=== PATIENT | female | born 1970 | race Caucasian/White ===

== ENCOUNTER 2017-06-16 10:04 | Day surgery (SDC) | payer BC ==
[~2017-06-16 10:04] MED LIST: Lactated Ringers 1,000 ML IV SCH; Midazolam 1 MG/ML 2 ML SDV ONE; Propofol 200 MG/20 ML SDV ONE; Sodium Chloride 0.9% 5 ML Syringe FLUSH PRN
[2017-06-16] MEDS ORDERED: Ketorolac 30 MG/ML SDV ONE (11:04)
[2017-06-16] MEDS ORDERED: Scopolamine 1.5 MG Transdermal Patch ONE (11:04)
--- NOTE | 2017-06-16 11:39 | PCM.PN ---
- General Info Date of Service: 06/16/17 - Review of Systems Systems Review Comment:: 46 y/o female with family history of colon cancer and colon polyps here for surveillance colonoscopy. She is medically stable to proceed with no recent significant changes to her health status except some abdominal bloating this last week. She understands well the proposed procedure and agrees to proceed accepting risks. - Patient Data Vitals - Most Recent: Last Vital Signs Temp 98.3 F 06/16/17 10:46 Pulse 65 06/16/17 10:46 Resp 12 06/16/17 10:46 BP 103/75 06/16/17 10:46 Pulse Ox 98 06/16/17 10:46 Weight - Most Recent: 66.361 kg Lab Results Last 24 Hours: Laboratory Results - last 24 hr 06/16/17 Range/Units 10:30 Urine HCG, Qual Negative (NEGATIVE) Med Orders - Current: Current Medications Lactated Ringer's (Ringers, Lactated) 1,000 mls @ 50 mls/hr IV ASDIRECTED MATT Last Admin: 06/16/17 10:45 Dose: 50 mls/hr Sodium Chloride (Syrex Flush) 5 ml FLUSH Q8HR PRN PRN Reason: Keep Vein Open Discontinued Medications Midazolam HCl (Versed 1 Mg/Ml) Confirm Administered Dose 4 mg .ROUTE .STK-MED ONE Stop: 06/16/17 09:55 Propofol (Diprivan 20 Ml) Confirm Administered Dose 400 mg .ROUTE .STK-MED ONE Stop: 06/16/17 09:55 - Problem List Review Problem List Initiated/Reviewed/Updated: Yes - My Orders Last 24 Hours: My Active Orders 06/16/17 10:00 Patient to Empty Bladder [RC] ASDIRECTED Peripheral IV Care [RC] . DIRECTED Verify Patient Consent Obtain [RC] ASDIRECTED Lactated Ringers [Ringers, Lactated] 1,000 ml IV ASDIRECTED Sodium Chloride 0.9% [Syrex Flush] 5 ml FLUSH Q8HR PRN Peripheral IV Insertion Adult [OM.PC] Routine 06/16/17 Breakfast Nothing Per Oral Diet [DIET] - Assessment Assessment:: family history of colon cancer and polyps - Plan Plan:: colonoscopy
[2017-06-16] MEDS ORDERED: Midazolam 1 MG/ML 2 ML SDV IV ONE (12:03)
[2017-06-16] MEDS ORDERED: Propofol 200 MG/20 ML SDV IV ONE (12:03)
[2017-06-16] MEDS ORDERED: Scopolamine 1.5 MG Transdermal Patch TOP ONE (12:03)
[2017-06-16] MEDS ORDERED: Ondansetron 4 MG/2 ML SDV IVPUSH ONE (12:03)
[2017-06-16 14:35] VITALS: BP 103/59
--- NOTE | 2017-06-16 16:33 | PCM.OPNOTE ---
- General Post-Op/Procedure Note Date of Surgery/Procedure: 06/16/17 Operative Procedure(s): Colonoscopy Findings: Mild Sigmoid Diverticulosis Moderate Sized Hemorrhoids Pre Op Diagnosis: Family History of Colon Cancer and Polyps Post-Op Diagnosis: Diverticulosis. Hemorrhoids Anesthesia Technique: MAC Primary Surgeon: Binh Yadav Pathology: none Output, Urine Amount: 0 EBL in mLs: 0 Complications: None Condition: Good Free Text/Narrative:: Intake & Output 06/16/17 06/16/17 06/16/17 06:59 14:59 22:59 Intake Total 50 Balance 50
--- NOTE | 2017-06-17 01:32 | OR ---
DATE OF SURGERY: 06/16/2017 SURGEON: Binh Yadav MD REFERRING PHYSICIAN: Kelsea Borges MD PREOPERATIVE DIAGNOSIS: Family history of colon cancer and colon polyps. POSTOPERATIVE DIAGNOSIS: Diverticulosis, hemorrhoids. OPERATION PERFORMED: Colonoscopy. INDICATIONS FOR SURGERY: This 46-year-old female has a known family history of colon cancer in her mother and there is also a history of colon polyps. The patient comes for screening colonoscopy. FINDINGS: No polyps were seen on today's exam. The patient has a mild degree of sigmoid diverticulosis which appears uncomplicated. She also has moderate- sized internal and external hemorrhoids. The colon otherwise appears normal. DESCRIPTION OF PROCEDURE: The patient was taken to the operating room. She was given intravenous sedation and with her in the left lateral decubitus position, digital rectal exam was performed showing no rectal masses. The Olympus colonoscope was inserted into the rectum. Retroflexed examination of the rectal canal was performed. The scope was then carefully advanced under direct visualization through the entire length of the colon until the cecum was reached. Cecal acquisition was confirmed by noting the normal internal cecal anatomy including the appendiceal orifice and ileocecal valve. The light was also noted to transilluminate the abdominal wall in the right lower quadrant. After examining the cecum, the scope was slowly withdrawn, sequentially reexamining the colonic segments until the entire colon and rectum had been fully examined. The scope was then removed and the patient was taken from the operating room in satisfactory condition. ESTIMATED BLOOD LOSS: Zero. COMPLICATIONS: None. PROGNOSIS: Good. /[id number]/MODL
== END 2017-06-16 15:45 | disposition home or self-care (01) ==
LOC: KA.SDS 10:04
PROVIDERS: ATTEND Surgery
DX: Z12.11 Encounter for screening for malignant neoplasm of colon (principal); K64.8 Other hemorrhoids; K64.4 Residual hemorrhoidal skin tags; K57.30 Diverticulosis of large intestine without perforation or abscess without bleeding; Z83.71 Family history of colonic polyps; Z80.0 Family history of malignant neoplasm of digestive organs; F41.9 Anxiety disorder, unspecified; F32.9 Major depressive disorder, single episode, unspecified; K21.9 Gastro-esophageal reflux disease without esophagitis; Z79.899 Other long term (current) drug therapy; Z88.8 Allergy status to other drugs, medicaments and biological substances; Z90.49 Acquired absence of other specified parts of digestive tract
CPT/HCPCS: 45378; 81025; A9270; J2250; J2405; J2704; J7120

== ENCOUNTER 2019-12-13 13:14 | Day surgery (SDC) | payer BC ==
[2019-12-13] MEDS ORDERED: Sodium Chloride 0.9% 10 ML Syringe FLUSH PRN (13:15)
[2019-12-13] MEDS ORDERED: Lactated Ringers 1,000 ML IV SCH (13:15)
--- NOTE | 2019-12-13 14:53 | PCM.PN ---
- General Info Date of Service: 12/13/19 - Review of Systems Systems Review Comment:: 49-year-old female referred for screening colonoscopy. She has noted change in bowel pattern with some increased constipation recently. She is not had any blood in her stool. She is medically stable to proceed with the colonoscopy today. I have reviewed her recent history and physical and no significant changes are noted. I discussed the proposed colonoscopy with the patient. She agrees to proceed accepting risks. - Patient Data Vitals - Most Recent: Last Vital Signs Temp 97.7 F 12/13/19 13:15 Pulse 78 12/13/19 13:15 Resp 16 12/13/19 13:15 BP 115/64 12/13/19 13:15 Pulse Ox 96 12/13/19 13:15 Weight - Most Recent: 70.307 kg Lab Results Last 24 Hours: Laboratory Results - last 24 hr 12/13/19 Range/Units 13:50 Urine HCG, Qual Negative (NEGATIVE) Med Orders - Current: Current Medications Lactated Ringer's (Ringers, Lactated) 1,000 mls @ 30 mls/hr IV ASDIRECTED MATT Last Admin: 12/13/19 14:01 Dose: 30 mls/hr Sodium Chloride (Saline Flush) 10 ml FLUSH Q8HR PRN PRN Reason: keep vein open Sepsis Event Note - Focused Exam Vital Signs: Vital Signs Temp Pulse Resp BP Pulse Ox 12/13/19 13:15 97.7 F 78 16 115/64 96 Date Exam was Performed: 12/13/19 Time Exam was Performed: 14:52 - Problem List Review Problem List Initiated/Reviewed/Updated: Yes - My Orders Last 24 Hours: My Active Orders 12/13/19 13:15 Peripheral IV Care [RC] . DIRECTED Verify Patient Consent Obtain [RC] ASDIRECTED Vital Signs [RC] PER UNIT ROUTINE Lactated Ringers [Ringers, Lactated] 1,000 ml IV ASDIRECTED Sodium Chloride 0.9% [Saline Flush] 10 ml FLUSH Q8HR PRN Peripheral IV Insertion Adult [OM.PC] Routine 12/13/19 Breakfast Nothing Per Oral Diet [DIET] - Assessment Assessment:: Colon cancer screening - Plan Plan:: Colonoscopy
[2019-12-13] MEDS ORDERED: Midazolam 1 MG/ML 2 ML SDV ONE (14:55)
[2019-12-13] MEDS ORDERED: Propofol 200 MG/20 ML SDV ONE (14:56)
[2019-12-13] MEDS ORDERED: Midazolam 1 MG/ML 2 ML SDV IV ONE (15:01)
[2019-12-13] MEDS ORDERED: Propofol 200 MG/20 ML SDV IV ONE (15:01)
[2019-12-13] MEDS ORDERED: Ondansetron 4 MG/2 ML SDV IV ONE (15:01)
[2019-12-13] MEDS ORDERED: Ketorolac 30 MG/ML SDV IVPUSH ONE (15:01)
[2019-12-13] MEDS ORDERED: Ketorolac 30 MG/ML SDV ONE (15:36)
--- NOTE | 2019-12-13 15:40 | PCM.OPNOTE ---
- General Post-Op/Procedure Note Date of Surgery/Procedure: 12/13/19 Operative Procedure(s): Colonoscopy Findings: Moderate sized Hemorrhoids Mild Sigmoid Diverticulosis Pre Op Diagnosis: Colon cancer screening Post-Op Diagnosis: Sigmoid Diverticulosis. Hemorrhoids Anesthesia Technique: MAC Primary Surgeon: Binh Yadav Pathology: none EBL in mLs: 0 Complications: None Condition: Good
[2019-12-13 17:02] VITALS: BP 98/48; PULSE 89
--- NOTE | 2019-12-13 17:56 | OR ---
DATE OF SURGERY: 12/13/2019 SURGEON: Binh Yadav MD PREOPERATIVE DIAGNOSIS: Colon cancer screening. POSTOPERATIVE DIAGNOSIS: Sigmoid diverticulosis and external hemorrhoids. OPERATION PERFORMED: Colonoscopy. INDICATIONS FOR SURGERY: This 49-year-old female is referred for colonoscopy for colon cancer screening. FINDINGS: The patient has a mild degree of diverticulosis in the sigmoid colon. This does not appear to be acutely inflamed or otherwise complicated. She also has moderate-sized external hemorrhoids. The remainder of the colon and terminal ileum appeared normal. DESCRIPTION OF PROCEDURE: The patient was taken to the operating room. She was given intravenous sedation and with her in the left lateral decubitus position, digital rectal exam was performed. No rectal masses are noted. The Olympus colonoscope was inserted into the rectum. Retroflexed examination of the rectal canal was performed. The scope was then carefully advanced under direct visualization through the entire length of the colon until cecum is reached. Cecal acquisition is confirmed by noting the normal internal cecal anatomy including the appendiceal orifice and the ileocecal valve. The ileocecal valve was cannulated and the terminal ileum was examined and appeared normal. The scope was then slowly withdrawn sequentially re-examining the colonic segments until the entire colon and rectum had been fully examined. The scope was removed and the patient was taken from the operating room in satisfactory condition. ESTIMATED BLOOD LOSS: Zero. COMPLICATIONS: None. PROGNOSIS: Good. /[id number]/MODL
== END 2019-12-13 16:50 | disposition home or self-care (01) ==
LOC: KA.SDS 13:14
PROVIDERS: ATTEND Surgery
DX: K57.30 Diverticulosis of large intestine without perforation or abscess without bleeding (principal); K64.4 Residual hemorrhoidal skin tags; F41.9 Anxiety disorder, unspecified; E55.9 Vitamin D deficiency, unspecified; Z88.6 Allergy status to analgesic agent; Z88.8 Allergy status to other drugs, medicaments and biological substances
CPT/HCPCS: 81025; J1885; J2250; J2405; J2704; J7120

== ENCOUNTER 2021-12-24 08:58 | Day surgery (SDC) | payer BC ==
[~2021-12-24 08:58] MED LIST changes: -Midazolam 1 MG/ML 2 ML SDV ONE; -Propofol 200 MG/20 ML SDV ONE; +Sodium Chloride 0.9% 10 ML Syringe FLUSH PRN; -Sodium Chloride 0.9% 5 ML Syringe FLUSH PRN
[2021-12-24] MEDS ORDERED: Glycopyrrolate 0.2 MG/ML SDV IVPUSH ONE (08:59)
[2021-12-24] MEDS ORDERED: Ondansetron 4 MG/2 ML SDV IV ONE (08:59)
[2021-12-24] MEDS ORDERED: Midazolam 1 MG/ML 2 ML SDV ONE (10:07)
[2021-12-24] MEDS ORDERED: Propofol 200 MG/20 ML SDV ONE (10:07)
[2021-12-24] MEDS ORDERED: Lidocaine 2% 5 ML SDV ONE (10:08)
[2021-12-24] MEDS ORDERED: Lactated Ringers 1,000 ML ONE (10:50)
[2021-12-24] MEDS ORDERED: Ketorolac 30 MG/ML SDV ONE (10:50)
[2021-12-24 12:27] VITALS: BP 114/69; PULSE 65
== END 2021-12-24 12:33 | disposition home or self-care (01) ==
LOC: KA.SDS 08:58
PROVIDERS: ATTEND Surgery
DX: K57.30 Diverticulosis of large intestine without perforation or abscess without bleeding (principal); K64.4 Residual hemorrhoidal skin tags; I78.1 Nevus, non-neoplastic; K31.89 Other diseases of stomach and duodenum; K21.9 Gastro-esophageal reflux disease without esophagitis; F41.9 Anxiety disorder, unspecified; F32.A Depression, unspecified; Z88.8 Allergy status to other drugs, medicaments and biological substances; Z91.018 Allergy to other foods; Z80.0 Family history of malignant neoplasm of digestive organs; Z79.899 Other long term (current) drug therapy; Z90.49 Acquired absence of other specified parts of digestive tract; Z98.890 Other specified postprocedural states
CPT/HCPCS: 81025; J1885; J2250; J2405; J2704; J3490; J7120

== ENCOUNTER 2024-02-02 10:05 | Day surgery (SDC) | payer BC ==
[2024-02-02] MEDS ORDERED: Ondansetron 4 MG/2 ML SDV IV ONE (10:06)
[2024-02-02] MEDS ORDERED: Sodium Chloride 0.9% 10 ML Syringe FLUSH PRN (10:45)
[2024-02-02] MEDS ORDERED: Midazolam 1 MG/ML 2 ML SDV ONE (11:57)
[2024-02-02] MEDS ORDERED: Propofol 200 MG/20 ML SDV ONE (11:57)
[2024-02-02] MEDS ORDERED: Ketorolac 30 MG/ML SDV ONE (12:31)
[2024-02-02] MEDS ORDERED: Lactated Ringers 1,000 ML ONE (12:57)
[2024-02-02] MEDS: Lactated Ringers 1,000 ML IV SCH (15:42)
[2024-02-02 16:07] VITALS: BP 117/79; PULSE 67
== END 2024-02-02 13:55 | disposition home or self-care (01) ==
LOC: KA.SDS 10:05
PROVIDERS: ATTEND Surgery
DX: K51.40 Inflammatory polyps of colon without complications (principal); K57.30 Diverticulosis of large intestine without perforation or abscess without bleeding; K21.9 Gastro-esophageal reflux disease without esophagitis; F41.9 Anxiety disorder, unspecified; F32.A Depression, unspecified; Z88.6 Allergy status to analgesic agent; Z79.899 Other long term (current) drug therapy; Z98.890 Other specified postprocedural states; Z80.0 Family history of malignant neoplasm of digestive organs
CPT/HCPCS: 81025; J1885; J2250; J2405; J2704; J3490; J7120